=== PATIENT | female | born 1945 | race Caucasian/White ===

== ENCOUNTER → 2023-04-16 11:35 | Outpatient (REF) | payer MEDICARE, OTHER, SELFPAY | LOC: REG 11:35 | PROVIDERS: ATTENDING PHYSICIAN Internal Medicine Critical Care Medicine; FAMILY PHYSICIAN Internal Medicine Geriatric Medicine | DX: J47.9 Bronchiectasis, uncomplicated (principal); R05.3 Chronic cough | CPT/HCPCS: 87070; 87147; 87186; 87205 ==

== ENCOUNTER → 2023-11-15 10:02 | Outpatient (REF) | payer MEDICARE, OTHER, SELFPAY | LOC: RCS 10:02 | PROVIDERS: ATTENDING PHYSICIAN Internal Medicine Pulmonary Disease; FAMILY PHYSICIAN Internal Medicine Geriatric Medicine | DX: J84.9 Interstitial pulmonary disease, unspecified (principal); J84.10 Pulmonary fibrosis, unspecified | CPT/HCPCS: 93005 ==

== ENCOUNTER 2023-12-24 09:00 | Outpatient (RCR) | payer MEDICARE, OTHER, SELFPAY | END 2023-12-24 23:59 | disposition home or self-care (01) | LOC: PURB 09:00 | PROVIDERS: ATTENDING PHYSICIAN Internal Medicine Pulmonary Disease; FAMILY PHYSICIAN Internal Medicine Geriatric Medicine | DX: J84.9 Interstitial pulmonary disease, unspecified (principal); J96.11 Chronic respiratory failure with hypoxia | CPT/HCPCS: G0237 ==

== ENCOUNTER → 2024-01-23 14:19 | Outpatient (REF) | payer MEDICARE, OTHER, SELFPAY | LOC: REG 14:19 | PROVIDERS: ATTENDING PHYSICIAN Nurse Practitioner Adult Health | DX: J84.9 Interstitial pulmonary disease, unspecified (principal) | CPT/HCPCS: 87070; 87147; 87186; 87205 ==

== ENCOUNTER 2024-01-28 14:45 | Outpatient (RCR) | payer MEDICARE, OTHER, SELFPAY | END 2024-01-28 23:59 | disposition home or self-care (01) | LOC: PURB 14:45 | PROVIDERS: ATTENDING PHYSICIAN Internal Medicine Pulmonary Disease; FAMILY PHYSICIAN Internal Medicine Geriatric Medicine | DX: J84.9 Interstitial pulmonary disease, unspecified (principal); J96.11 Chronic respiratory failure with hypoxia | CPT/HCPCS: G0239 ==

== ENCOUNTER → 2024-01-29 10:15 | Outpatient (REF) | payer MEDICARE, OTHER, SELFPAY | LOC: REG 10:15 | PROVIDERS: ATTENDING PHYSICIAN Nurse Practitioner Adult Health; FAMILY PHYSICIAN Internal Medicine Geriatric Medicine | DX: R05.3 Chronic cough (principal) | CPT/HCPCS: 87070; 87147; 87186; 87205 ==

== ENCOUNTER 2024-03-05 14:45 | Outpatient (RCR) | payer MEDICARE, OTHER, SELFPAY | END 2024-03-20 11:35 | disposition home or self-care (01) | LOC: PURB 14:45 | PROVIDERS: ATTENDING PHYSICIAN Internal Medicine Pulmonary Disease; FAMILY PHYSICIAN Internal Medicine Geriatric Medicine | DX: J84.9 Interstitial pulmonary disease, unspecified (principal); J96.11 Chronic respiratory failure with hypoxia | CPT/HCPCS: G0239 ==

== ENCOUNTER 2024-03-10 18:18 | Inpatient (IN) | payer MEDICARE, OTHER, SELFPAY ==
[2024-03-10] VITALS (7 sets, daily range): BP systolic 118–163; BP diastolic 52–75; BMI 24.0; BMI 23.1
[2024-03-10] MEDS: TYLENOL 650 MG PO ×2 (14:22→21:55)
[2024-03-10 14:37] LABS: % Basophils 0.3 % (0-2); % Eosinophils 0.1 % (0-6); % Immature Granulocytes 0.4 % (0-0.5); % Lymphocytes 6.2 % (20.5-51.1); % Monocytes 15.3 % (1.7-9.3); % Neutrophils 77.7 % (42.2-75.2); Absolute Lymphocytes 0.6 10^3/uL (1.2-3.4); Absolute Monocytes 1.4 10^3/uL (0.1-0.6); Hematocrit 39.7 % (37.0-47.0); Hemoglobin 13.3 g/dL (12.0-16.0); Mean Corp Hgb Conc. 33.5 g/dL (33.0-37.0); Mean Corpuscular Volume 89.4 fL (81.0-99.0); Mean Platelet Volume 10.3 fL (7.4-10.4); Nucleated Red Blood Cells % 0 %; Platelet Count 272 10^3/uL (130-400); Red Blood Cell Count 4.44 10^6/uL (4.20-5.40); Red Cell Dist. Width 13.5 % (11.5-14.5)
[2024-03-10 14:48] LABS: ALT (SGPT) 25 U/L (0-35); AST (SGOT) 37 U/L (14-36); Albumin 4.7 g/dl (3.5-5.0); Alkaline Phosphatase 88 U/L (38-126); Blood Urea Nitrogen 18 mg/dl (7-17); Calcium 9.8 mg/dl (8.4-10.2); Carbon Dioxide 24 mmol/L (22-30); Chloride 97 mmol/L (98-107); Glucose 119 mg/dl (70-99); Potassium 3.9 mmol/L (3.5-5.1); Sodium 136 mmol/L (135-145); Total Bilirubin 0.4 mg/dl (0.2-1.3); Total Protein 7.5 g/dl (6.3-8.2); eGFR > 60.00
[2024-03-10 14:59] LABS: COVID-19 Antigen Negative (Negative)
[2024-03-10 16:13] LABS: Creatine Phosphokinase 98 U/L (30-135)
[2024-03-10] MEDS: NSS 1000 IV (16:19)
--- NOTE | 2024-03-10 16:45 | ED.GENMED ---
History of Present Illness
General
Chief Complaint: Weakness
Source: patient and family
Exam Limitations: none
Time Seen by Provider: 03/10/24 15:30
Nursing documentation reviewed up to this point in time: agreed with
History of Present Illness
History of Present Illness:
78-year-old female with history of hypertension, hyperlipidemia, interstitial lung disease on as needed home oxygen presents to the ER with family for evaluation of severe fatigue, cough, diarrhea; today was found down by daughter. Patient reports
that over the past 48 hours she has been having tremendous generalized weakness. She says she has watery brown stool nonbloody. She says she has had hacking cough and increased shortness of breath. Today when she went to get up out of bed she
says that she did not have the strength to even stand on her legs and she lowered herself down onto her bottom. She said she did not fall or injure herself. She denies any headache, neck pain, extremity pain. Was apparently sitting on the ground
for about 2 hours until daughter came to check on her and found her sitting. EMS was called by daughter who found her and she was brought to the ER. Review of medication list shows no blood thinners.
Review of Systems
Review of Systems
All Other Systems: ROS reviewed and negative except as documented in HPI and ROS
Constitutional: Reports fatigue; Denies fever or chills
EENT: Reports runny nose; Denies sore throat
Respiratory: Reports cough and trouble breathing
Cardiac: Denies chest pain or palpitations
ABD/GI: Reports diarrhea; Denies abdominal pain, nausea or vomiting
: Denies flank pain
Musculoskeletal: Denies neck pain or back pain
Neurological: Denies dizzy or headache
Phy Exam
Physical Exam
Physical Exam:
General: Awake, alert, oriented x3; no acute distress
Head: Normocephalic, atraumatic
Eyes: Conjunctiva normal, EOMI
Throat: Airway intact, dry mucous membranes
Neck: Trachea midline, supple without meningismus
Lungs: Patient is tachypneic, saturating 94% on 3 L nasal cannula; she has rales throughout all lung lopez most pronounced at the lung bases
Heart: Regular rate and rhythm, no murmurs, gallops, or rubs
Abd: Soft, non distended, nontender
Back: No signs of trauma the back or flank
Neuro: Generally weak but no focal deficit
Skin: Warm, dry
Extremities: Atraumatic, no edema in extremities, equal pulses in all extremities
Scores
Heart Failure Risk
Heart Failure Risk Score: Not Applicable
Heart Score for Chest Pain Patients
STEMI patient?: Not applicable
Withdrawal Assessment of Alcohol
Withdrawal Assessment Completed?: Not applicable
Sepsis
Sepsis Screening
Sepsis Assessment: Sepsis Ruled Out
Sepsis Screen
Sepsis Screen: Sepsis Ruled Out
Date: 03/10/24
Time: 16:53
Course
Orders/Labs/Results
Orders:
Orders
03/10/24 13:45
ECG [Electrocardiogram (*1)] Urgent
Reason for Study: Shortness of Breath
EKG- Treatment ONCE
03/10/24 14:09
Complete Blood Count/With Diff Urgent
Comprehensive Metabolic Panel Urgent
Creatine Phosphokinase Urgent
Comment: ADD ON
Influenza A+B Rapid Molecular Urgent
VAISHALI Source: Nasal Swab
Specimen Description:
03/10/24 14:10
COVID-19 Antigen Urgent
Source: Nasal Swab
03/10/24 14:22
Acetaminophen [Tylenol] 650 mg PO NOW STA
03/10/24 15:31
Add On- LAB Urgent
Tests Added?: CPK
CR Chest - 2 Views Urgent
Comment:
Reason For Exam: sob, flu+
03/10/24 15:32
CT Head W/o Iv Contrast Urgent
Comment:
Reason For Exam: found down, weak/confused
0.9% Sodium Chloride 1000 ml [Nss] 1,000 ml IV BOLUS
03/10/24 16:44
Ipratropium/Albuterol Sulfate [Duoneb] 3 ml INH R NOW ONE
MethylPREDNISolone PF [Solu-Medrol Pf] 125 mg IV NOW STA
Oseltamivir Phosphate [Tamiflu] 75 mg PO NOW STA
03/10/24 17:51
Admit/Transfer Patient As Directed
Co-Sign Provider:
Level of Care: Inpatient admission
Assign to:: Telemetry
Physician / Group: Hospitalist
Diagnosis: Influenza
Reason for Telemetry: Chest Pain syndromes
Date to Stop Telemetry: 03/12/24
Time to Stop Telemetry: 11:00
Reason for Hospitalization: Influenza
Expected length of stay greater than two midnights?: Yes
ELOS- Estimated Length of Stay in days: 5
I certify the patient meets the requirements for IP care: Yes
03/10/24 17:52
PRN Pain Medication Management As Directed
May give lesser potent ordered pain med per pt: Yes
preference::
Protocol:: Medication orders for pain may be administered in a
manner that supports deferring to patient preference
when the pt is:
- Requesting an ordered lesser potent pain medication.
Least to most potent pain medications are defined
as: acetaminophen < NSAID < tramadol < opioids
(morphine, oxycodone, hydromorphone).
- Requesting a lesser dose of the same medication IF
ORDERED.
- Requesting a less intrusive route of administration
if both routes are prescribed by the provider (PO <
IV).
03/10/24 17:54
Code Status As Directed
Resuscitation Status: Do not resuscitate
Reached after discussion with pt or family/Healthcare POA: Yes
Decision communicated with: patient and family at bedside
DNR Bracelet Application ONCE
03/10/24 19:50
Acetaminophen [Tylenol] 650 mg PO Q4HPRN PRN
Diphenhydramine [Benadryl] 25 mg PO HSPRN PRN
03/10/24 19:50
PULMONARY CONSULT Routine
Consulting Provider: Trav Trevizo
Was physician already notified: Yes
Reason for consult: influenza in setting of chronic pulmonary fibrosis
Respiratory Culture/Gram Stain Urgent
VAISHALI Source: Sputum
Specimen Description:
Activity As Directed
Activity Level: Out of Bed-Early Mobility
Intake/ Output As Directed
Frequency: Per unit guidelines
Vital Signs As Directed
Frequency: Per unit guidelines
Weight As Directed
Frequency: Once
Comment: on admission
Pt Eval And Treat Routine
Treatment: eval gait
Activity Level: With Assistance
DX Deep Vein Thrombosis Video Routine
03/10/24 20:00
Budesonide/Formoterol 160/4.5 [Symbicort 160/4.5 Mcg Inhaler] 2 puff INH R BID
Doxycycline [Vibramycin] 100 mg PO BID
Guaifenesin [Mucinex] 600 mg PO Q12
Heparin 5,000 units SC Q12
Mycophenolate [Cellcept] 250 mg PO BID
03/10/24 20:24
Troponin I Q6H
03/10/24 21:00
Cefuroxime Axetil [Ceftin] 500 mg PO Q12
03/10/24 22:00
Atorvastatin [Lipitor] 10 mg PO HS
03/11/24 01:50
Troponin I Q6H
03/11/24 Breakfast
Regular
At Your Request: Full Participation
Basic Metabolic Panel IN AM
Complete Blood Count/No Diff IN AM
03/11/24 07:50
Troponin I Q6H
03/11/24 08:00
Amlodipine [Norvasc] 5 mg PO DAILY
Aspirin Low Dose EC [Aspir Low (Enteric Coated)] 81 mg PO DAILY
Atovaquone/Zgmnldtmb-Hjq-Zpmi [Malarone 250/100 mg Tablet] 1 tablet PO DAILY
Calcium Carbonate/Vitamin D3 [Oscal 500 + D] 500 mg PO DAILY
Dexamethasone Sod Phosphate [Decadron] 8 mg IV Q6H
Loratadine [Claritin] 10 mg PO DAILY
Methenamine Hippurate [Hiprex] 1 gram PO DAILY
Montelukast Sodium [Singulair] 10 mg PO DAILY
Multivitamin [Theragran] 1 tablet PO DAILY
Oseltamivir Phosphate [Tamiflu] 30 mg PO BID
Pantoprazole [Protonix] 40 mg PO DAILY
Solifenacin Succinate [Vesicare] 5 mg PO DAILY
cranberry extract [Ellura] 200 mg PO DAILY
fluticasone propionate 2 spray NASAL DAILY
03/11/24 13:50
Troponin I Q6H
03/12/24 11:00
DC Protocol for Telemetry ONCE
Abnormal Lab Results
03/10/24
14:09
Absolute Neuts (auto) 7.0 H 10^3/uL
(1.4-6.5)
Absolute Lymphs (auto) 0.6 L 10^3/uL
(1.2-3.4)
Absolute Monos (auto) 1.4 H 10^3/uL
(0.1-0.6)
Neutrophils % 77.7 H %
(42.2-75.2)
Lymphocytes % 6.2 L %
(20.5-51.1)
Monocytes % 15.3 H %
(1.7-9.3)
Chloride 97 L mmol/L
(98-107)
BUN 18 H mg/dl
(7-17)
Glucose 119 H mg/dl
(70-99)
AST 37 H U/L
(14-36)
03/10/24 14:09
03/10/24 14:09
Vital Signs
Initial and Last Documented VS:
Initial Vital Signs
Temp Pulse Resp BP Pulse Ox
39.2 C H 99 24 158/75 93
03/10/24 13:39 03/10/24 13:39 03/10/24 13:39 03/10/24 13:39 03/10/24 13:39
Last Documented Vital Signs
Temp Pulse Resp BP Pulse Ox
36.6 C 73 16 118/54 97
03/10/24 23:16 03/10/24 23:16 03/10/24 23:16 03/10/24 23:16 03/10/24 23:16
MDM/Problems Addressed
Differential Diagnosis Includes:
Weakness: Infection including pneumonia, UTI, influenza/COVID/viral syndrome; anemia, electrolyte derangement/dehydration
MDM/Problems Addressed:
78-year-old female presents for evaluation of generalized weakness in the setting of recent cough, diarrhea; she had a minor fall today as well but denies serious injury. She arrives to us mildly hypertensive, heart rate in the 90s, respiratory
rate mid 20s, febrile, pulse ox low to mid 90s on 3 L nasal cannula. Physical exam as above. She had labs sent in triage including a CBC and a CMP�CMP marginal BUN elevation but no other clinically significant abnormalities. Added CPK as she was
on the ground for about 2 hours�this was normal. She was tested for COVID and flu and she was positive for influenza A. She was sent for CT head and abundance of caution given fall and this was negative. Chest x-ray showed ILD but no clear
pneumonia. Clinical suspicion is for influenza A and interstitial lung disease causing her dyspnea and coughing as well as her diarrhea. Will treat with steroids, nebs, Tamiflu. Provide IV fluids for acute dehydration noted on exam. Will admit
for continued management, PT evaluation. Discussed case with hospitalist.
*Radiology
Radiology exam reviewed: preliminary read by ED provider and radiology read reviewed
*Pulse Oximetry
Patient hypoxic: yes
*EKG
Interpreted by ED Provider?: Yes
Heart Rate: 98
Rate: normal
Rhythm: sinus
Goff: normal axis
Interval: normal interval
QRS Pattern: left vent hypertrophy
Ischemia: no ischemia
*Critical Care Note
Total Time (30-74mins, 75-104mins- exclusive of procedures): Not Applicable
Data Reviewed
Source: patient, records and family
Patient Management
Social determinants of health affecting care: Living situation (Lives alone)
Discussion with other providers: Hospitalist (Discussed with hospitalist)
Escalation/DeEscalation of care consider admission/obs:
Admission indicated
ED Attending Note
-
Portions of this chart may have been created with voice recognition software.� Occasional wrong word or��sound alike� substitutions may have occurred due to the inherent limitations of voice recognition software.
Discharge Plan
Departure
Patient Disposition: Admit
Date of Disposition: 03/10/24
Time of Disposition: 16:53
Admit to doctor: Thomas
Presentation/result/management discussed w/ accepting MD/DO: Hospitalist
Discharge Problem:
Acute dehydration, Influenza A, ILD (interstitial lung disease)
Interventions
Interventions:
*Risk Screen - Suicide Last Done: 03/10/24 15:36
*General Assessment Last Done: 03/10/24 15:36
*Neglect/Abuse Screening Last Done: 03/10/24 15:36
ED- Fall Risk Assessment Last Done: 03/10/24 15:36
*ED COVID-19 Vaccine History Last Done: 03/10/24 15:36
*Nursing Disposition Last Done: 03/10/24 19:36
ED- Cardiac Assessment Last Done: 03/10/24 15:39
ED- Neurological Assessment Last Done: 03/10/24 15:39
ED- Pulmonary Assessment Last Done: 03/10/24 15:43
Discharge Date and Time
Discharge Date/Time: 03/10/24 19:39
[2024-03-10] MEDS: TAMIFLU 75 MG PO (16:55)
[2024-03-10] MEDS: DUONEB 3 ML INH (16:55)
[2024-03-10] MEDS: SOLU-MEDROL PF 125 MG IV (16:56)
--- NOTE | 2024-03-10 17:23 | HPS.HSE ---
Family Physician
-
Family Physician: Marquez Nettles
Chief Complaint
-
Respiratory distress
History of Present Illness
78-year-old woman with a history of:
hypertension,
hyperlipidemia,
interstitial lung disease on as needed home oxygen
presents with severe fatigue, cough, diarrhea; over the past 48 hours she has been having severe generalized weakness. 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 She has had hacking cough and increased shortness of breath. Today she did
not have the strength to stand on her legs and she lowered herself down onto her bottom, by her bed. She did not fall or injure herself. She denies any headache, neck pain, extremity pain. She Was sitting on the ground for about 2 hours until
daughter found her sitting. EMS was called by daughter who found her and she was brought to the ER. No blood thinners. During my exam she was coughing violently, but was able to speak in full sentences. CXR shows:
Extremely low lung volumes are noted. Prominent bilateral interstitial markings are again seen at least in part suggesting chronic interstitial fibrosis.
Cannot exclude mild superimposed acute interstitial process.
There is no focal parenchymal consolidation.
The cardiomediastinal silhouettes are within the limits of normal.
There is no pneumothorax, pleural effusion or mediastinal shift.
Medical History
Past Medical History
Past Medical History: Reports Other
Additional Past Medical History:
Pulmonary fibrosis
History of kidney stones
Personal history of colonic polyps
Essential (primary) hypertension
Chronic UTI
Mixed hyperlipidemia
Bronchiectasis, uncomplicated
Chronic cough
Gastroesophageal reflux disease,
Interstitial lung disease
sinus surgery x2 (2011)
left wrist ligament rebuilt
forehead basal cell ca-mohs (2012)
sinusitis
squamous cell CA nose-mohs
Allergic rhinitis
Hx kidney stones
DandC
catracts both eyes
squimous cancer remoed from nose
skin cancer on R leg removed 06/2019
skin cancer removed from chin 2019
Surgical History
Cysto 08/2022
Past Surgical History: Reports Other
Additional Past Surgical History:
See above
Social History
Tobacco: Non-smoker
Alcohol: None
Drug: None
Living: Alone
Family History
Family History: Not pertinent
Allergies / Home Medications
Allergies reflects when Allergies were last updated in [facility].
Home Medications with original date entered in [facility]
Allergy/Medication List:
Allergies
Allergy/AdvReac Type Severity Reaction Status Date / Time
clindamycin [Clindamycin] Allergy Rash Verified 03/10/24 13:41
latex Allergy Rash Verified 03/10/24 13:41
oxycodone HCl [From Percocet] Allergy headache,vo Verified 03/10/24 13:41
miting
sulfamethoxazole Allergy Rash Verified 03/10/24 13:41
[From Bactrim]
trimethoprim [From Bactrim] Allergy Rash Verified 03/10/24 13:41
bandaids Allergy Rash Uncoded 03/10/24 13:41
Dust,mold Allergy headache,co Uncoded 03/10/24 13:41
ngestion
surgical tape Allergy Rash Uncoded 03/10/24 13:41
Home Medications
amlodipine 5 mg tablet 5 mg PO DAILY 03/10/24
amoxicillin 875 mg-potassium clavulanate 125 mg tablet 1 tab PO BID 03/10/24
aspirin 81 mg capsule 81 mg PO DAILY 03/10/24
atovaquone 250 mg-proguanil 100 mg tablet (Malarone) 1 tab PO DAILY 03/10/24
budesonide-formoterol HFA 160 mcg-4.5 mcg/actuation aerosol inhaler (Breyna) 2 puff inhalation BID 03/10/24
calcium carb-ergocalciferol (vit D2) 600 mg calcium-200 unit tablet 1 tab PO DAILY 03/10/24
cefaclor 500 mg tablet,extended release,12 hr 500 mg PO Q12H 03/10/24
cranberry extract 200 mg capsule (Ellura) 200 mg PO DAILY 03/10/24
diphenhydramine HCl 25 mg tablet (Benadryl Allergy) 25 mg PO HS PRN sleep 03/10/24
fexofenadine 180 mg tablet 180 mg PO DAILY 03/10/24
fluticasone propionate 50 mcg/actuation nasal spray,suspension 2 spray intranasal DAILY 03/10/24
methenamine hippurate 1 gram tablet 1 g PO DAILY 03/10/24
montelukast 10 mg tablet 10 mg PO DAILY 03/10/24
multivitamin 1 tab PO DAILY 03/10/24
mycophenolate mofetil 250 mg capsule (CellCept) 250 mg PO BID 03/10/24
omeprazole 40 mg capsule,delayed release 40 mg PO DAILY 03/10/24
pantoprazole 40 mg tablet,delayed release 40 mg PO DAILY 03/10/24
simvastatin 20 mg tablet 20 mg PO HS 03/10/24
solifenacin 5 mg tablet 5 mg PO DAILY 03/10/24
Review of Systems
-
History Source: Patient
A 12 point ROS was completed and negative except as noted: Yes
Physical Exam
Vital Signs
Vital Signs
Temp Pulse Resp BP Pulse Ox
99.5 F 86 15 132/54 94
03/10/24 16:20 03/10/24 17:00 03/10/24 16:19 03/10/24 17:00 03/10/24 17:00
Physical Exam
General: Well Developed, Well Nourished and Respiratory Distress
HEENT: Moist mucous membranes, Atraumatic, Nose Appears Normal, Ears Appear Normal and Oxygen
Respiratory: Wheezes, Crackles and Decreased Breath Sounds
Cardiac: S1/S2 and Tachycardia
GI: Soft, Non Tender and Non Distended
Musculoskeletal: No Clubbing, No Cyanosis and No Edema
Skin: Warm and Dry
Neuro: Awake, Alert, Oriented and AO x 3
Psych: Anxious
Laboratory Results
-
03/10/24 14:09
03/10/24 14:09
Laboratory Results
Total Bilirubin 0.4 mg/dl (0.2-1.3) 03/10/24 14:09
AST 37 U/L (14-36) H 03/10/24 14:09
ALT 25 U/L (0-35) 03/10/24 14:09
Alkaline Phosphatase 88 U/L (38-126) 03/10/24 14:09
Data Reviewed
-
Lab Data: Labs Reviewed by me
Impression/Plan
-
IMPRESSION:
78 woman with chronic lung disease comes in with influenza
PLAN:
1. Influenza A, 1 day of symptoms. in setting of chronic lung fibrosis
Steroids
Tamiflu
Pulmonary consult
cough control
2. h/o sitting on floor for several hours - CK wnl
NO action needed
No evidencce of rhabdo
3. BUN/creatinine > 20, likely from poor po intake
Encourage po fluids
Check renal function daily
Code: DNR
VCD for DVTp
[2024-03-10] MEDS: CELLCEPT 250 MG PO (20:54)
[2024-03-10 20:56] LABS: Troponin I 0.027 ng/ml
[2024-03-10] MEDS: CEFTIN 500 MG PO (20:56)
[2024-03-10] MEDS: MUCINEX 600 MG PO (20:56)
[2024-03-10] MEDS: HEPARIN 5000 UNITS SC (20:57)
[2024-03-10] MEDS: ZOFRAN 4 MG IV (20:57)
[2024-03-10] MEDS: LIPITOR 10 MG PO (21:30)
[2024-03-10] MEDS: SYMBICORT 160/4.5 MCG INHALER 2 PUFF INH (21:31)
[2024-03-10] MEDS: VIBRAMYCIN PO (21:36)
[2024-03-10 23:15] LABS: Glucose - Point of Care 165 mg/dl (70-99)
[2024-03-11] VITALS (7 sets, daily range): BP systolic 109–127; BP diastolic 50–73; O2SAT 100; BMI 23.1
[2024-03-11 00:50] LABS: Venous Blood Gas B.E. -2.2 mmol/L (-4 to +4); Venous Blood Gas HCO3 24.2 mmol/L (22-27); Venous Blood Gas O2 Sat % 99.1 %; Venous Blood Gas pCO2 47 mmHg (35-48); Venous Blood Gas pH 7.32 (7.32-7.43); Venous Blood Gas pO2 114 mmHg (30-50)
[2024-03-11 00:51] LABS: Venous Blood Gas O2 Therapy 3L NC
--- NOTE | 2024-03-11 02:09 | DOWNTIME ---
There was a [employer] Client [employer] Downtime on 03/11/2024 from 0100 to 03/11/2023 at 0205 . Downtime documentation of patient's care, including medication administrations, has been reconciled in the electronic record per guidelines. Refer to the
patient's paper chart under the miscellaneous tab to see printed paper medication records and downtime forms.
[2024-03-11 02:49] LABS: Troponin I 0.021 ng/ml
--- NOTE | 2024-03-11 03:17 | W.PN.UPDATE ---
Update Note
Progress Note Update
RN notified GAG WRITER. Patient has been ox3, conversant and now found to be sleeping with minimal response to questions. Patient seen and evaluated. noted to be sleeping, arousable, opens eyes, whispered she is at [facility] and went back to
sleep. 97.8 BP 118/54 HR 73 and 97% on 3L. Blood sugar 165, did not receive any sedatives. no medications found in patients bag that she may have taken.
Stab VBG done, results noted, advise wean oxygen down as allowed.
RN reported patient is awake alert and oriented at present. occasional productive cough, will order medications.
[2024-03-11] MEDS: ROBITUSSIN DM 5 ML PO (04:53)
--- NOTE | 2024-03-11 07:52 | PTCARENOTE ---
late entry: 03/10 @ 2300 pt was very lethargic and unable to keep eyes open during conversation. able to be aroused with touch/pain but would quickly fall back asleep right after. VS were stable as documented, BS obtained- 165. Pt appeared mildly
confused when responding...AAOx2 disoriented to time. Pt was AAOx3 at start of shift. THERAPIST OCCUPATIONAL was notified and came to bedside to assess pt. VBG ordered and obtained.
Approximately @ 0300 was AAOx3 back at baseline. Pt still complains of feeling mildly confused at times and feels to have 'brain fog.' VS Stable at this time. THERAPIST OCCUPATIONAL notified. No new orders.
[2024-03-11] MEDS: SYMBICORT 160/4.5 MCG INHALER 2 PUFF INH ×2 (08:10→19:52)
[2024-03-11 08:19] LABS: Hematocrit 37.2 % (37.0-47.0); Hemoglobin 12.7 g/dL (12.0-16.0); Mean Corp Hgb Conc. 34.1 g/dL (33.0-37.0); Mean Corpuscular Hgb 30.5 pg (27.0-31.0); Mean Corpuscular Volume 89.4 fL (81.0-99.0); Mean Platelet Volume 10.2 fL (7.4-10.4); Platelet Count 242 10^3/uL (130-400); Red Blood Cell Count 4.16 10^6/uL (4.20-5.40); Red Cell Dist. Width 13.6 % (11.5-14.5); White Blood Cell Count 8.3 10^3/uL (4.8-10.8)
[2024-03-11 08:20] LABS: Troponin I 0.017 ng/ml
--- NOTE | 2024-03-11 08:44 | CON.PUL ---
Consultation
Consultation Request
Date/Time Consultation Requested: 03/11/24
Date/Time Consultation Performed: 03/11/24
Performing Provider: Rodney
Reason for Consultation: Flu, COPD
Medical History
-
History of Present Illness:
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 She had worsening weakness,
lowered herself down onto her bottom, by her bed. Found by daughter, denies fall or injury. CXR showing chronic changes, no acute process.
In ER, she was noted to be Flu A positive. She is admitted for treatment/tamiflu.
Has history of IPF following with Dr Estrdaa in [place].
Past Medical History
Past Medical History: Other (see list below)
Social History
Tobacco: Non-smoker
Alcohol: None
Drug: None
Family History
Family History: Reviewed & Not Pertinent
Allergies / Home Medications
Allergies
Allergy/AdvReac Type Severity Reaction Status Date / Time
adhesive Allergy BANDAIDS-RA Verified 03/10/24 19:56
SH
clindamycin [Clindamycin] Allergy Rash Verified 03/10/24 13:41
house dust Allergy headache,co Verified 03/10/24 19:56
ngestion
latex Allergy Rash Verified 03/10/24 13:41
mold Allergy headache,co Verified 03/10/24 19:56
ngestion
oxycodone HCl [From Percocet] Allergy headache,vo Verified 03/10/24 13:41
miting
sulfamethoxazole Allergy Rash Verified 03/10/24 13:41
[From Bactrim]
trimethoprim [From Bactrim] Allergy Rash Verified 03/10/24 13:41
surgical tape Allergy Rash Uncoded 03/10/24 13:41
Home Medications
�Medication �Instructions �Recorded �Confirmed �Last Taken �Type
amlodipine 5 mg tablet 5 mg PO DAILY Blood Pressure 03/10/24 03/10/24 Unknown History
amoxicillin 875 mg-potassium 1 tab PO BID Infection 03/10/24 03/10/24 Unknown History
clavulanate 125 mg tablet
aspirin 81 mg capsule 81 mg PO DAILY Blood Clot 03/10/24 03/10/24 Unknown History
Prevention/Tx
atovaquone 250 mg-proguanil 100 mg 1 tab PO DAILY Infection 03/10/24 03/10/24 Unknown History
tablet (Malarone)
budesonide-formoterol HFA 160 2 puff inhalation BID 03/10/24 03/10/24 Unknown History
mcg-4.5 mcg/actuation aerosol Lung/Breathing Issues
inhaler (Breyna)
calcium carb-ergocalciferol (vit 1 tab PO DAILY Supplement 03/10/24 03/10/24 Unknown History
D2) 600 mg calcium-200 unit tablet
cefaclor 500 mg tablet,extended 500 mg PO Q12H Infection 03/10/24 03/10/24 Unknown History
release,12 hr
cranberry extract 200 mg capsule 200 mg PO DAILY Supplement 03/10/24 03/10/24 Unknown History
(Ellura)
diphenhydramine HCl 25 mg tablet 25 mg PO HS PRN sleep 03/10/24 03/10/24 Unknown History
(Benadryl Allergy)
fexofenadine 180 mg tablet 180 mg PO DAILY Allergies 03/10/24 03/10/24 Unknown History
fluticasone propionate 50 2 spray intranasal DAILY Congestion 03/10/24 03/10/24 Unknown History
mcg/actuation nasal
spray,suspension
methenamine hippurate 1 gram tablet 1 g PO DAILY Infection 03/10/24 03/10/24 Unknown History
montelukast 10 mg tablet 10 mg PO DAILY ASTHMA 03/10/24 03/10/24 Unknown History
multivitamin 1 tab PO DAILY Supplement 03/10/24 03/10/24 Unknown History
mycophenolate mofetil 250 mg 250 mg PO BID Transplant 03/10/24 03/10/24 Unknown History
capsule (CellCept)
omeprazole 40 mg capsule,delayed 40 mg PO DAILY GERD 03/10/24 03/10/24 Unknown History
release
pantoprazole 40 mg tablet,delayed 40 mg PO DAILY GERD 03/10/24 03/10/24 Unknown History
release
simvastatin 20 mg tablet 20 mg PO HS High Cholesterol 03/10/24 03/10/24 Unknown History
solifenacin 5 mg tablet 5 mg PO DAILY OAB 03/10/24 03/10/24 Unknown History
Review of Systems
-
History Source: Patient
All other systems: Negative unless noted
Vitals / Labs / Diagnostic Testing
Vital Signs
Temp Pulse Resp BP Pulse Ox
98.4 F 88 20 127/62 91
03/11/24 07:30 03/11/24 08:16 03/11/24 08:16 03/11/24 07:30 03/11/24 08:16
Lab Data
03/11/24 07:48
Microbiology
03/10/24 14:09 Nasal Swab Influenza Types A & B (JUSTIN) - Final
Influenza A Positive, NAAT
Diagnostic Testing:
Physical Exam
-
HEENT: Normocephalic, Anicteric and Moist Mucous Membranes
Cardiovascular: S1/S2 and Regular Rhythm
Respiratory: Rales and Non-Labored Respirations
GI: Soft, Non Distended and Non Tender
Neurology: Awake, Alert, Oriented and No Motor Deficits
Skin: Warm, Dry and Good Color
General: Comfortable and Other (NAD)
Assessment
-
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 She had worsening weakness,
lowered herself down onto her bottom, by her bed. Found by daughter, denies fall or injury. CXR showing chronic changes, no acute process.
In ER, she was noted to be Flu A positive. T max at 102.6F. She is admitted for treatment/tamiflu.
Acute on chronic respiratory failure on O2
Acute influenza A infection
AECOPD
Acute on chronic SOB
Generalized weakness
Fever
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
History of IPF following with Dr Estrada in [place], with RLD severe (TLC 43%)
COPD-moderate obstruction
HTN
HLD
History of kidney stones
Personal history of colonic polyps
Essential hypertension
Chronic UTI
Bronchiectasis, uncomplicated
Chronic cough
Gastroesophageal reflux disease
Sinusitis/Sinus surgery x2 (2011)
Left wrist ligament rebuilt
Forehead basal cell ca-mohs (2012)
Squamous cell CA nose-mohs
Allergic rhinitis
D/C
Cataracts both eyes
Skin cancer on R leg/chin 2019
Cysto 08/2022
Plan
Baseline use of O2 at home PRN, she is placed on 2L supplemental
May need to use this continuously until improved, reviewed with her
There is known prior history of lung disease including COPD/IPF, chronic cough
She follows with Pulmonary in [place]
Suspect patient has AECOPD w/ flu illness
She is on IV steroids, will decrease starting dose
She has taken prednisone in past for exacerbations
ABG results are normal
Flu A + now on tamiflu
Fevers noted, continue to trend
CXR/CT obtained indicating R perihilar infiltrate
Follow clinically
Other imaging reviewed
Can follow repeat imaging as OP in 4-6 weeks
Can check PCT to evaluate need for abx
Had prior blood cultures that were positive, being treated with oral course of abx
No records on treatment for this
ECHO results in past reviewed, stable function
Will need outpatient pulmonary evaluation in our office including PFTs and 6MWT
Reviewed with patient
Can follow up with her doctor in [place], has appt next month
If doing well in next 24 hours, could assess for discharge
We will follow
Diagnostic Data
CXR 03/10/24- Extremely low lung volumes. Findings likely representing predominantly chronic interstitial fibrosis. Cannot exclude mild superimposed acute interstitial process such as interstitial edema or interstitial pneumonitis.
CT CHEST 02/20/23- Moderate interstitial thickening and chronic interstitial lung disease with fibrosis. 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 Classic honeycombing is not present, and this is a distinct imaging feature
of UIP therefore this suggests 'probable UIP pattern'. Reticular abnormalities with areas of vague groundglass mosaic pattern, bronchiectasis and a subpleural basilar predominance. This may represent IPF (Idiopathic pulmonary fibrosis). No focal
airspace process or bronchopneumonia. No pleural effusion.
ECHO 01/25/23- Normal left ventricular size, wall thickness and systolic function. LV ejection fraction is 65-70%. No significant valvular disease. No prior study available for comparison.
PFT 12/24/23- FEV1 1.06L 56%, ratio 0.79. TLC 43%, DLCO 48% (moderate obstruction, severe restriction, moderate diffusion impairment)
Reports and relevant images were personally reviewed.
-----
Total time spent on this consultation _75__ minutes which includes review of history, physical exam, medications, llaboratory data, personal review of imaging, extensive review of outpatient records, and discussions with care team.
[2024-03-11 08:45] LABS: Blood Urea Nitrogen 23 mg/dl (7-17); Calcium 8.9 mg/dl (8.4-10.2); Carbon Dioxide 23 mmol/L (22-30); Chloride 101 mmol/L (98-107); Estimated Creatinine Clearance 63 ml/min; Glucose 129 mg/dl (70-99); Potassium 3.7 mmol/L (3.5-5.1); Sodium 138 mmol/L (135-145); eGFR > 60.00
[2024-03-11] MEDS: ASPIR LOW (ENTERIC COATED) 81 MG PO (08:53)
[2024-03-11] MEDS: CLARITIN 10 MG PO (08:54)
[2024-03-11] MEDS: CEFTIN 500 MG PO ×2 (08:54→21:14)
[2024-03-11] MEDS: VIBRAMYCIN 100 MG PO ×2 (08:54→21:16)
[2024-03-11] MEDS: SINGULAIR 10 MG PO (08:54)
[2024-03-11] MEDS: THERAGRAN 1 TABLET PO (08:54)
[2024-03-11] MEDS: OSCAL 500 + D 500 MG PO (08:54)
[2024-03-11] MEDS: MUCINEX 600 MG PO ×2 (08:54→21:14)
[2024-03-11] MEDS: TYLENOL 650 MG PO (08:55)
[2024-03-11] MEDS: NORVASC 5 MG PO (08:55)
[2024-03-11] MEDS: HIPREX 1 GRAM PO (08:55)
[2024-03-11] MEDS: DECADRON 8 MG IV ×2 (08:56→14:23)
[2024-03-11] MEDS: PROTONIX 40 MG PO (08:56)
[2024-03-11] MEDS: CELLCEPT 250 MG PO ×2 (08:56→21:14)
[2024-03-11] MEDS: VESICARE 5 MG PO (08:56)
[2024-03-11] MEDS: TAMIFLU 30 MG PO ×2 (08:56→21:13)
[2024-03-11] MEDS: HEPARIN 5000 UNITS SC ×2 (08:57→21:15)
[2024-03-11 14:08] LABS: Troponin I 0.014 ng/ml
--- NOTE | 2024-03-11 15:20 | W.PN.HOSP.TC ---
Today's Communication/Plan
-
finish Tamiflu
wean steroids
check procalcitonin
Assessment / Plan
Assessment / Plan
pt is a 78 year old female
acute exacerbation of COPD from influenza (with weakness)--agree with Tamiflu--on home O2 dose--wean steroids as able--apprec pulm input--would stop ABX for now--cont Singulair and MDIs--check procalcitonin per pulm
acute on chronic hypoxemic resp failure on 2L home O2 at baseline--pt now back to home O2 dose--pt NO longer takes malarone--cont cellcept
essential HTN -- cont amlodipine
GERD -- cont PPI
HLD -- cont simvastatin
DVT proph
Code: DNR
Anticipated Discharge: 24 - 48 hours
Subjective/Interval History
-
Date of Service: March 11, 2024
pt feeling better--not as weak
Objective Data
-
Labs:
Laboratory Results
03/11/24
07:48
WBC 8.3
Hgb 12.7
Hct 37.2
Plt Count 242
Sodium 138
Potassium 3.7
Chloride 101
Carbon Dioxide 23
BUN 23 H
Creatinine 0.6
Glucose 129 H
Calcium 8.9
Vital Signs:
max temp for 24 hours
03/10/24
13:39
Temp 102.6 F H
Vital Signs
Temp Pulse Resp BP Pulse Ox
97.9 F 68 16 126/52 95
03/11/24 11:29 03/11/24 11:29 03/11/24 11:29 03/11/24 11:29 03/11/24 11:29
I&O
03/10/24 03/11/24 03/12/24
06:59 06:59 06:59
Intake Total 480 / 480
Balance 480 / 480
Review of Systems
-
All other systems: Reviewed and negative
Physical Exam
-
General: Appears Chronically Ill
HEENT: Normocephalic, Atraumatic and Oxygen
Respiratory: Crackles (coarse velcro like crackles)
Cardiac: Regular Rhythm and S1/S2; Negative Murmur
GI: Soft, Nontender, Nondistended and Normal Bowel Sounds
Musculoskeletal: No Clubbing, No Cyanosis and No Edema
Neuro: Awake and Alert
Psych: Calm
--- NOTE | 2024-03-11 15:55 | CM ---
Patient seen at bedside with physician. Patient stated that she lives alone and that her PCP is Dr. Nettles. Patient home is a 2 story home and she uses the [facility] in [place] on [address]. Patient has home O2 2 liters and she normally is very
independent. Patient daughter at bedside. CM reviewed options with them, home vs snf pending PT/OT assessment. Patient plan is for home but is considering SNF if recommended. CM will continue to follow for discharge planning needs.
Plan; home with VN vs SNF
[2024-03-11] MEDS: LIPITOR 10 MG PO (21:13)
[2024-03-11] MEDS: DECADRON 4 MG IV (21:14)
[2024-03-12] MEDS: DECADRON 4 MG IV ×3 (02:49→13:47)
[2024-03-12 03:00] VITALS: BP 138/73
[2024-03-12] MEDS: TUMS CHEWABLE TABLET 200 MG PO (04:05)
[2024-03-12] MEDS: PROTONIX 40 MG PO (05:45)
[2024-03-12 06:41] LABS: Procalcitonin < 0.05 ng/ml (0.0-0.25)
[2024-03-12 06:42] LABS: Blood Urea Nitrogen 29 mg/dl (7-17); Carbon Dioxide 23 mmol/L (22-30); Chloride 102 mmol/L (98-107); Estimated Creatinine Clearance 63 ml/min; Glucose 124 mg/dl (70-99); Potassium 4.1 mmol/L (3.5-5.1); Sodium 137 mmol/L (135-145); eGFR > 60.00
[2024-03-12 07:11] LABS: Hemoglobin 12.7 g/dL (12.0-16.0); Mean Corp Hgb Conc. 33.4 g/dL (33.0-37.0); Mean Corpuscular Hgb 30.1 pg (27.0-31.0); Mean Platelet Volume 10.4 fL (7.4-10.4); Platelet Count 266 10^3/uL (130-400); Red Blood Cell Count 4.22 10^6/uL (4.20-5.40); Red Cell Dist. Width 13.4 % (11.5-14.5); White Blood Cell Count 14.3 10^3/uL (4.8-10.8)
[2024-03-12] MEDS: SYMBICORT 160/4.5 MCG INHALER 2 PUFF INH ×2 (07:24→20:36)
[2024-03-12 07:30] VITALS: BP 133/58
[2024-03-12] MEDS: TAMIFLU 30 MG PO (08:28)
[2024-03-12] MEDS: NORVASC 5 MG PO (08:28)
[2024-03-12] MEDS: CEFTIN 500 MG PO (08:28)
[2024-03-12] MEDS: OSCAL 500 + D 500 MG PO (08:28)
[2024-03-12] MEDS: HIPREX 1 GRAM PO (08:29)
[2024-03-12] MEDS: SINGULAIR 10 MG PO (08:29)
[2024-03-12] MEDS: ASPIR LOW (ENTERIC COATED) 81 MG PO (08:29)
[2024-03-12] MEDS: THERAGRAN 1 TABLET PO (08:29)
[2024-03-12] MEDS: MUCINEX 600 MG PO (08:29)
[2024-03-12] MEDS: VESICARE 5 MG PO (08:30)
[2024-03-12] MEDS: CLARITIN 10 MG PO (08:30)
[2024-03-12] MEDS: VIBRAMYCIN 100 MG PO (08:30)
[2024-03-12] MEDS: CELLCEPT 250 MG PO ×2 (08:30→20:12)
[2024-03-12] MEDS: HEPARIN 5000 UNITS SC ×2 (08:32→20:11)
--- NOTE | 2024-03-12 08:33 | PN.CDI ---
CDI
- -
CDI:
Physician Documentation Request
Admit Date: 03/10/24 18:18
Dear Doctor Ibeth,
Patient admitted with influenza A.
Selected Entries
03/10/24
13:39
Temp 102.6 F H
03/10/24
13:39 03/10/24
17:45 03/10/24
18:10
Pulse 99 91 101
03/10/24
15:38 03/10/24
18:22 03/10/24
19:30
Resp Rate 26 24 33
Please clarify which of the following most accurately describes the status of the patient's infection:
Viral Sepsis
- Systemic manifestations of infection, with 2 or more SIRS criteria which include:
- Fever >100.4 degrees F or hypothermia < 96.8 degrees F
- Leukocytosis - WBC > 12,000 or leukopenia - WBC < 4,000 or > 10% bands
- Tachycardia > 90 beats per minute
- Tachypnea - RR > 20 breaths per minute or PaCO2 , 32mmHg
Source: Merck Manual 2012
- Indicate the known or suspected underlying infection, such as UTI, pneumonia or cellulitis
Severe Sepsis
- Sepsis with associated acute organ dysfunction, such as renal or respiratory failure
- Documentation should indicate the association between the sepsis and the organ dysfunction
Localized Infection Only, Without Systemic Illness
- indicate the site/source, such as UTI, pneumonia etc.
Other
Use of terms such as suspected, likely, concern for, or probable (associated with a specific diagnosis that is being evaluated, monitored, or treated as if it exists) are acceptable and can be coded in the inpatient setting, when documented at the
time of discharge.
Thank you,
Fang Bishop RN, BSN
CDI Specialist
Available via [employer] text
Please use your independent medical judgment in providing your response.
--- NOTE | 2024-03-12 09:06 | W.PN.PUL3 ---
Today's Communication / Plan
-
Doing well, no new complaints
Will transition to PO prednisone to complete taper
Complete tamiflu course, no need for abx from our standpoint
Home O2 eval
Can f/u with her Pulm in [place] as OP
PT eval
Ok for discharge from our perspective, but she states she does not wish to go home
Assessment
-
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 She had worsening weakness,
lowered herself down onto her bottom, by her bed. Found by daughter, denies fall or injury. CXR showing chronic changes, no acute process.
In ER, she was noted to be Flu A positive. T max at 102.6F. She is admitted for treatment/tamiflu.
Acute on chronic respiratory failure on O2
Acute influenza A infection
AECOPD
Acute on chronic SOB
Generalized weakness
Fever
Conditions present [employer]
History of IPF following with Dr Estrada in [place], with RLD severe (TLC 43%)
COPD-moderate obstruction
HTN
HLD
History of kidney stones
Personal history of colonic polyps
Essential hypertension
Chronic UTI
Bronchiectasis, uncomplicated
Chronic cough
Gastroesophageal reflux disease
Sinusitis/Sinus surgery x2 (2011)
Left wrist ligament rebuilt
Forehead basal cell ca-mohs (2012)
Squamous cell CA nose-mohs
Allergic rhinitis
D/C
Cataracts both eyes
Skin cancer on R leg/chin 2019
Cysto 08/2022
Plan
Baseline use of O2 at home PRN, she is placed on 2L supplemental
May need to use this continuously until improved, reviewed with her
There is known prior history of lung disease including COPD/IPF, chronic cough
She follows with Pulmonary in [place]
Suspect patient has AECOPD w/ flu illness
She is on IV steroids, will decrease starting dose--transition to PO course in AM
She has taken prednisone in past for exacerbations
ABG results are normal
Flu A + now on tamiflu
Fevers noted, continue to trend
CXR/CT obtained indicating R perihilar infiltrate
Follow clinically
Other imaging reviewed
Can follow repeat imaging as OP in 4-6 weeks
PCT neg--can stop abx
Had prior sputum cultures that were positive, being treated with oral course of abx but no records to confirm
Can follow up OP pulm for this
ECHO results in past reviewed, stable function
Will need outpatient pulmonary evaluation in our office including PFTs and 6MWT
Reviewed with patient
Can follow up with her doctor in [place], has appt next month
If doing well in next 24 hours, could assess for discharge
Diagnostic Data
CXR 03/10/24- Extremely low lung volumes. Findings likely representing predominantly chronic interstitial fibrosis. Cannot exclude mild superimposed acute interstitial process such as interstitial edema or interstitial pneumonitis.
CT CHEST 02/20/23- Moderate interstitial thickening and chronic interstitial lung disease with fibrosis. 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 Classic honeycombing is not present, and this is a distinct imaging feature
of UIP therefore this suggests 'probable UIP pattern'. Reticular abnormalities with areas of vague groundglass mosaic pattern, bronchiectasis and a subpleural basilar predominance. This may represent IPF (Idiopathic pulmonary fibrosis). No focal
airspace process or bronchopneumonia. No pleural effusion.
ECHO 01/25/23- Normal left ventricular size, wall thickness and systolic function. LV ejection fraction is 65-70%. No significant valvular disease. No prior study available for comparison.
PFT 12/24/23- FEV1 1.06L 56%, ratio 0.79. TLC 43%, DLCO 48% (moderate obstruction, severe restriction, moderate diffusion impairment)
Reports and relevant images were personally reviewed.
-----
Total time spent on this encounter _55__ minutes which includes review of history, physical exam, medications, llaboratory data, personal review of imaging, extensive review of outpatient records, and discussions with care team.
Subjective Data
-
Date of Service:
Date of Service: March 12, 2024
Chief Complaint: Pulmonary Follow Up
Subjective:
Doing well today, still SOB, too anxious to go home
No new complaints
Objective Data
Data Reviewed
Vital Signs / I&O / Oxygen:
Vital Signs
Temp Pulse Resp BP Pulse Ox
98.8 F 68 16 133/58 98
03/12/24 07:30 03/12/24 08:28 03/12/24 07:30 03/12/24 08:28 03/12/24 07:30
Intake and Output
03/11/24 03/12/24 03/13/24
06:59 06:59 06:59
Intake Total 480 / 480 1440 / 1440
Balance 480 / 480 1440 / 1440
SaO2 98
Nasal Cannula flow liters per 2
minute
Physical Exam
General: Comfortable and Other (NAD)
HEENT: Normocephalic, Anicteric and Moist Mucous Membranes
Cardiovascular: S1-S2 and Regular Rhythm
Respiratory: Crackles and Non-Labored Respirations
GI: Soft, Non Distended and Non Tender
Neurology: Awake, Alert, Oriented and No Motor Deficits
Skin: Warm, Dry and Good Color
Labs/Micro/Reports
Lab Data
03/12/24 05:45
03/12/24 05:45
Microbiology
03/10/24 14:09 Nasal Swab Influenza Types A & B (JUSTIN) - Final
Influenza A Positive, NAAT
--- NOTE | 2024-03-12 10:54 | CM ---
Patient seen at bedside with daughter
PT rec HH
Options reviewed. VN preferred - notified liasion
Daughter states will work from [facility]'s home.
Daughter states she also has a friend who is a private aide if needed.
PLAN: [facility], [facility]
--- NOTE | 2024-03-12 11:14 | W.PN.HOSP.TC ---
Today's Communication/Plan
-
see bold
Assessment / Plan
Assessment / Plan
Gen: NAD, AAOx3, appears chronically ill.
Eyes: EOMI, PERRLA, no scleral icterus.
Neck: supple.
CV: RRR, +S1/S2, no m/r/g.
Resp: B/L velcro rales, greatest in the bases
Abd: +BS, soft, NT, ND
Skin: No rashes.
Neuro: CN 2-12 intact, non-focal.
Psych: Normal mood and affect.
CXR: Extremely low lung volumes. Findings likely representing predominantly chronic interstitial fibrosis. Cannot exclude mild superimposed acute interstitial process such as interstitial edema or interstitial pneumonitis.
Acute on chronic hypoxemic respiratory failure due to acute exacerbation of ILD due to acute influenza A infection:
-baseline O2 2L NC
-cont Tamiflu
-cont Decadron/Symbicort
-pulm following
-procal NEG, acute bacterial PNA has been ruled out.
-doubt need for Doxy/Ceftin, will d/w pulm
-cont home Cellcept
Other problems:
Essential HTN: cont amlodipine
GERD: cont PPI
HLD: cont statin
DNR/Heparin
Anticipated Discharge: 24 - 48 hours
Subjective/Interval History
-
Date of Service: March 12, 2024
Objective Data
-
Labs:
Laboratory Results
03/12/24
05:45
WBC 14.3 H
Hgb 12.7
Hct 38.0
Plt Count 266
Sodium 137
Potassium 4.1
Chloride 102
Carbon Dioxide 23
BUN 29 H
Creatinine 0.6
Glucose 124 H
Calcium 9.0
Vital Signs:
Vital Signs
Temp Pulse Resp BP Pulse Ox
98.8 F 68 16 133/58 98
03/12/24 07:30 03/12/24 08:28 03/12/24 07:30 03/12/24 08:28 03/12/24 10:25
I&O
03/11/24 03/12/24 03/13/24
06:59 06:59 06:59
Intake Total 480 / 480 1440 / 1440
Balance 480 / 480 1440 / 1440
--- NOTE | 2024-03-12 11:21 | VNURNOTE ---
Home Health Liaison spoke with patient and patient's daughter Isha to discuss [facility] nurse/therapy, visits, schedule and homebound status. Both are agreeable and understand that visits at home will be 2-3 x per week to assess and teach medical
management.
Patient and daughter are aware that [facility] will contact them for start of care in 1-2 days after discharge from .
[facility] referral completed in [facility].
[2024-03-12 11:50] VITALS: BP 138/65
[2024-03-12] MEDS: TYLENOL 650 MG PO ×3 (12:25→21:27)
[2024-03-12 15:27] VITALS: BP 124/57
[2024-03-12 16:51] VITALS: BP 158/76; PULSE 85; O2SAT 96
[2024-03-12] MEDS: ROBITUSSIN DM 10 ML PO (18:20)
[2024-03-12] MEDS: TAMIFLU 75 MG PO (20:12)
[2024-03-12] MEDS: LIPITOR 10 MG PO (21:26)
[2024-03-12 23:30] VITALS: BP 152/74
[2024-03-13] MEDS: ROBITUSSIN DM 10 ML PO ×3 (03:25→12:37)
[2024-03-13 07:10] VITALS: BP 151/70
[2024-03-13] MEDS: SYMBICORT 160/4.5 MCG INHALER 2 PUFF INH (07:32)
[2024-03-13] MEDS: SINGULAIR 10 MG PO (08:09)
[2024-03-13] MEDS: VESICARE 5 MG PO (08:09)
[2024-03-13] MEDS: DELTASONE 50 MG PO (08:09)
[2024-03-13] MEDS: CLARITIN 10 MG PO (08:09)
[2024-03-13] MEDS: THERAGRAN 1 TABLET PO (08:10)
[2024-03-13] MEDS: OSCAL 500 + D 500 MG PO (08:10)
[2024-03-13] MEDS: TYLENOL 650 MG PO ×2 (08:10→12:36)
[2024-03-13] MEDS: CELLCEPT 250 MG PO (08:10)
[2024-03-13] MEDS: TAMIFLU 75 MG PO (08:10)
[2024-03-13] MEDS: HIPREX 1 GRAM PO (08:10)
[2024-03-13] MEDS: HEPARIN 5000 UNITS SC (08:11)
[2024-03-13] MEDS: ASPIR LOW (ENTERIC COATED) 81 MG PO (08:11)
[2024-03-13] MEDS: PROTONIX 40 MG PO (08:11)
[2024-03-13] MEDS: NORVASC 5 MG PO (08:12)
--- NOTE | 2024-03-13 08:18 | W.PN.HOSP.TC ---
Addendum entered and electronically signed by Nas Flores MD 03/13/24 14:20:
Immunosuppressed
Sepsis due to acute influenza A infection, POA
Original Note:
Today's Communication/Plan
-
d/c
Assessment / Plan
Assessment / Plan
Gen: remains NAD, AAOx3, appears chronically ill.
Eyes: EOMI, PERRLA, no scleral icterus.
Neck: supple.
CV: remains RRR, +S1/S2, no m/r/g.
Resp: remains B/L velcro rales, greatest in the bases
Abd: +BS, soft, NT, ND
Skin: No rashes.
Neuro: CN 2-12 intact, non-focal.
Psych: Normal mood and affect.
CXR: Extremely low lung volumes. Findings likely representing predominantly chronic interstitial fibrosis. Cannot exclude mild superimposed acute interstitial process such as interstitial edema or interstitial pneumonitis.
Acute on chronic hypoxemic respiratory failure due to acute exacerbation of ILD and COPD due to acute influenza A infection:
-baseline O2 2L NC
-cont Tamiflu to complete 5 days
-was on Decadron, now transitioned to Prednisone
-cont Symbicort
-procal NEG, acute bacterial PNA has been ruled out, abx stopped
-cont home Cellcept
-pulm following, case discussed with Dr. Stevens and the pt is medically cleared for d/c on Prednisone taper.
Other problems:
Essential HTN: cont amlodipine
GERD: cont PPI
HLD: cont statin
Pt's daughter updated at bedside.
DNR/Heparin
Medically cleared for d/c, case management aware. Pt may appeal the discharge.
Total time spent on d/c = 36 min. This included today's physical exam, progress note, review of laboratory and diagnostic data, preparation of discharge documents and prescriptions, and discussions about the pt's hospital course and discharge plan
with the patient and other medical center manager involved in the patient's care.
Anticipated Discharge: Today
Subjective/Interval History
-
Date of Service: March 13, 2024
No new complaints.
Objective Data
-
Vital Signs:
Vital Signs
Temp Pulse Resp BP Pulse Ox
97.3 F 65 16 151/70 97
03/13/24 07:10 03/13/24 07:35 03/13/24 07:35 03/13/24 07:10 03/13/24 07:35
I&O
03/12/24 03/13/24 03/14/24
06:59 06:59 06:59
Intake Total 1440 / 1440 920 / 920
Balance 1440 / 1440 920 / 920
--- NOTE | 2024-03-13 09:19 | W.PN.PUL3 ---
Today's Communication / Plan
-
Doing well, home O2 eval today
Prednisone taper, tamiflu course
Agree with d/c planning per team
OP FU as designated, all questions answered
Assessment
-
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 She had worsening weakness,
lowered herself down onto her bottom, by her bed. Found by daughter, denies fall or injury. CXR showing chronic changes, no acute process.
In ER, she was noted to be Flu A positive. T max at 102.6F. She is admitted for treatment/tamiflu.
Acute on chronic respiratory failure on O2
Acute influenza A infection
AECOPD
Acute on chronic SOB
Generalized weakness
Fever
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
History of IPF following with Dr Estrada in [place], with RLD severe (TLC 43%)
COPD-moderate obstruction
HTN
HLD
History of kidney stones
Personal history of colonic polyps
Essential hypertension
Chronic UTI
Bronchiectasis, uncomplicated
Chronic cough
Gastroesophageal reflux disease
Sinusitis/Sinus surgery x2 (2011)
Left wrist ligament rebuilt
Forehead basal cell ca-mohs (2012)
Squamous cell CA nose-mohs
Allergic rhinitis
D/C
Cataracts both eyes
Skin cancer on R leg/chin 2019
Cysto 08/2022
Plan
Baseline use of O2 at home PRN, she is placed on 2L supplemental
May need to use this continuously until improved, reviewed with her
Home O2 eval
There is known prior history of lung disease including COPD/IPF, chronic cough
She follows with Pulmonary in [place]
Suspect patient has AECOPD w/ flu illness
She is on IV steroids, will decrease starting dose--transition to PO course in AM
She has taken prednisone in past for exacerbations
ABG results are normal
Flu A + now on tamiflu
Fevers noted, continue to trend
CXR/CT obtained indicating R perihilar infiltrate
Follow clinically
Other imaging reviewed
Can follow repeat imaging as OP in 4-6 weeks
PCT neg--can stop abx
Had prior sputum cultures that were positive, being treated with oral course of abx but no records to confirm
Can follow up OP pulm for this
ECHO results in past reviewed, stable function
Will need outpatient pulmonary evaluation in our office including PFTs and 6MWT
Reviewed with patient
Can follow up with her doctor in [place], has appt next month
D/c planning per team
Diagnostic Data
CXR 03/10/24- Extremely low lung volumes. Findings likely representing predominantly chronic interstitial fibrosis. Cannot exclude mild superimposed acute interstitial process such as interstitial edema or interstitial pneumonitis.
CT CHEST 02/20/23- Moderate interstitial thickening and chronic interstitial lung disease with fibrosis. 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 Classic honeycombing is not present, and this is a distinct imaging feature
of UIP therefore this suggests 'probable UIP pattern'. Reticular abnormalities with areas of vague groundglass mosaic pattern, bronchiectasis and a subpleural basilar predominance. This may represent IPF (Idiopathic pulmonary fibrosis). No focal
airspace process or bronchopneumonia. No pleural effusion.
ECHO 01/25/23- Normal left ventricular size, wall thickness and systolic function. LV ejection fraction is 65-70%. No significant valvular disease. No prior study available for comparison.
PFT 12/24/23- FEV1 1.06L 56%, ratio 0.79. TLC 43%, DLCO 48% (moderate obstruction, severe restriction, moderate diffusion impairment)
Reports and relevant images were personally reviewed.
-----
Total time spent on this encounter _51__ minutes which includes review of history, physical exam, medications, llaboratory data, personal review of imaging, extensive review of outpatient records, and discussions with care team.
Subjective Data
-
Date of Service:
Date of Service: March 13, 2024
Chief Complaint: Pulmonary Follow Up
Subjective:
Doing well, ready to go home
Family at bedside
Objective Data
Data Reviewed
Vital Signs / I&O / Oxygen:
Vital Signs
Temp Pulse Resp BP Pulse Ox
97.3 F 69 16 151/70 97
03/13/24 07:10 03/13/24 08:12 03/13/24 07:35 03/13/24 08:12 03/13/24 07:35
Intake and Output
03/12/24 03/13/24 03/14/24
06:59 06:59 06:59
Intake Total 1440 / 1440 920 / 920
Balance 1440 / 1440 920 / 920
SaO2 97
Nasal Cannula flow liters per 2
minute
Physical Exam
General: Comfortable and Other (NAD)
HEENT: Normocephalic, Anicteric and Moist Mucous Membranes
Cardiovascular: S1-S2 and Regular Rhythm
Respiratory: Crackles and Non-Labored Respirations
GI: Soft, Non Distended and Non Tender
Neurology: Awake, Alert, Oriented and No Motor Deficits
Skin: Warm, Dry and Good Color
Labs/Micro/Reports
Lab Data
03/12/24 05:45
03/12/24 05:45
Microbiology
03/10/24 14:09 Nasal Swab Influenza Types A & B (JUSTIN) - Final
Influenza A Positive, NAAT
--- NOTE | 2024-03-13 11:17 | PN.CDI ---
CDI
- -
CDI:
Physician Documentation Request
Admit Date: 03/10/24 18:18
Dear Doctor Sandra,
Patient admitted for respiratory failure.
03/13 Hospitalist PN: 'Acute on chronic hypoxemic respiratory failure due to acute exacerbation of ILD and COPD due to acute influenza A infection...cont home Cellcept'
Based on the above, could you clarify in the progress notes, the appropriate diagnosis, if significant, that supports the above abnormalities and additional evaluation, monitoring and/or treatment rendered:
Immunosuppressed
Normal immunity
Other
Use of terms such as suspected, likely, concern for, or probable (associated with a specific diagnosis that is being evaluated, monitored, or treated as if it exists) are acceptable and can be coded in the inpatient setting, when documented at the
time of discharge.
Thank you,
Fang Bishop RN, BSN
CDI Specialist
Available via [place] text
Please use your independent medical judgment in providing your response.
--- NOTE | 2024-03-13 11:17 | CM ---
Addendum entered by Kimi Yoo 03/13/24 11:57:
Script for rolling walker given to PT on unit
Original Note:
Plan: Discharge to home today with Home Health services from [facility]
CM spoke with patient's daughter who is at the bedside and will provide transport home
Attending notified to provide script for PT to provide rolling walker at discharge
[2024-03-13 14:46] VITALS: BP 144/71
--- NOTE | 2024-03-13 16:02 | W.DCSUMMARY ---
Discharge Summary
Discharge Data
Date of Admission: 03/10/24
Date of Discharge: 03/13/24
-
Pending Results: No
Hospital Course
Primary diagnoses:
Sepsis and acute on chronic hypoxemic respiratory failure due to acute exacerbation of interstitial lung disease and chronic obstructive pulmonary disease due to acute influenza A infection
Secondary diagnoses:
Immunosuppressed
Essential hypertension
Gastroesophageal reflux disease
Hyperlipidemia
Consultants:
Pulmonary
Imaging:
CXR: Extremely low lung volumes. Findings likely representing predominantly chronic interstitial fibrosis. Cannot exclude mild superimposed acute interstitial process such as interstitial edema or interstitial pneumonitis.
Hospital course: 78-year-old female who presented with a chief complaint of respiratory distress as outlined in the H&P done on admission. The patient had sepsis and acute on chronic hypoxemic respiratory failure due to acute exacerbation of ILD
and COPD due to acute influenza A infection. She was placed on Tamiflu and Decadron. She was then transition to oral prednisone. She was initially on antibiotics but her procalcitonin was negative and acute bacterial pneumonia was ruled out.
Antibiotics were stopped. The patient was discharged on Tamiflu to complete a 5-day course and a prednisone taper.
Discharge Plan
-
Patient Disposition: Home with Home Care
Discharge Diagnosis/Procedures: Acute on chronic hypoxemic respiratory failure due to acute exacerbation of interstitial lung disease and chronic obstructive pulmonary disease due to acute influenza A infection
Condition: Fair
Diet: No restrictions
Activity: As tolerated
Driving Restrictions: As prior to admission
Referrals:
Marquez Nettles MD [Family Provider] - in less than 1 week
Prescriptions:
New
oseltamivir 75 mg Capsule
75 mg PO BID Qty: 10 0RF
Rx Instructions:
last dose 03/15/24
prednisone 10 mg tablet
10 mg PO DIRECTED Qty: 45 0RF
Rx Instructions:
Taper: 50mg daily x 3 days, 40mg daily x 3 days, 30mg daily x 3 days, 20mg daily x 3 days, 10mg daily x 3 days
Continued
multivitamin Tablet
1 tab PO DAILY
mycophenolate mofetil [CellCept] 250 mg Capsule
250 mg PO BID
fexofenadine 180 mg Tablet
180 mg PO DAILY
amlodipine 5 mg Tablet
5 mg PO DAILY
omeprazole 40 mg Capsule,Delayed Release(Dr/Ec)
40 mg PO DAILY
methenamine hippurate 1 gram Tablet
1 g PO DAILY
pantoprazole 40 mg Tablet,Delayed Release (Dr/Ec)
40 mg PO DAILY
simvastatin 20 mg Tablet
20 mg PO HS
diphenhydramine HCl [Benadryl Allergy] 25 mg Tablet
25 mg PO HS PRN (Reason: sleep)
montelukast 10 mg Tablet
10 mg PO DAILY
calcium carbonate-vitamin D2 600 mg calcium- 200 unit Tablet
1 tab PO DAILY
fluticasone propionate 50 mcg/actuation Bath,Suspension
2 spray INTRANASAL DAILY
amoxicillin-pot clavulanate 875-125 mg Tablet
1 tab PO BID
solifenacin 5 mg Tablet
5 mg PO DAILY
budesonide-formoterol [Breyna] 160-4.5 mcg/actuation Hfa Aerosol Inhaler
2 puff INHALATION BID
cranberry extract [Ellura] 200 mg Capsule
200 mg PO DAILY
aspirin 81 mg Capsule
81 mg PO DAILY
Discontinued
atovaquone-proguanil [Malarone] 250-100 mg Tablet
1 tab PO DAILY
cefaclor 500 mg Tablet Extended Release 12 Hr
500 mg PO Q12H
Discharge Orders:
Discharge Patient (As Directed); Ordered 03/13/24
Ordered By: Nas Flores
Discharge Date and Time
Discharge Date/Time: 03/13/24 15:03
Print Language: PORTUGUESE
== END 2024-03-13 15:03 | disposition home health service (06) | DRG 871 ==
LOC: 2 NORTH 18:18
PROVIDERS: Emergency Medicine; Internal Medicine; Nurse Practitioner Gerontology; ADMITTING PHYSICIAN Internal Medicine; ATTENDING PHYSICIAN Internal Medicine; EMERGENCY PHYSICIAN Emergency Medicine; FAMILY PHYSICIAN Internal Medicine Geriatric Medicine; OTHER PHYSICIAN Internal Medicine
DX: A41.89 Other specified sepsis (principal); J96.21 Acute and chronic respiratory failure with hypoxia; J44.1 Chronic obstructive pulmonary disease with (acute) exacerbation; D84.9 Immunodeficiency, unspecified; D84.821 Immunodeficiency due to drugs; Z66 Do not resuscitate; J10.1 Influenza due to other identified influenza virus with other respiratory manifestations; E78.2 Mixed hyperlipidemia; E86.0 Dehydration; I10 Essential (primary) hypertension; J84.10 Pulmonary fibrosis, unspecified; K21.9 Gastro-esophageal reflux disease without esophagitis; Z99.81 Dependence on supplemental oxygen; Z91.040 Latex allergy status; Z88.2 Allergy status to sulfonamides; Z88.1 Allergy status to other antibiotic agents; Z79.82 Long term (current) use of aspirin; Z79.899 Other long term (current) drug therapy; Z79.624 Long term (current) use of inhibitors of nucleotide synthesis; Z20.822 Contact with and (suspected) exposure to COVID-19
CPT/HCPCS: 70450; 71046; 80048; 80053; 82550; 82805; 82962; 83735; 84145; 84484; 85025; 85027; 87502; 87811; 93005; 94640; 96361; 96374; 97162; 97167; 97530; 97535; 99285

== ENCOUNTER → 2024-06-11 12:07 | Outpatient (REF) | payer MEDICARE, OTHER, SELFPAY ==
[2024-06-11 12:31] LABS: Urine Albumin 3+ (Neg - Trace); Urine Bilirubin 1+ (Negative); Urine Character Cloudy (Clear); Urine Color Yellow; Urine Glucose Negative (Negative); Urine Ketone Negative (Negative); Urine Leukocyte 3+ (Negative); Urine Nitrite Positive (Negative); Urine Occult Blood 2+ (Negative); Urine Urobilinogen 1+ (Neg - 1+)
[2024-06-11 14:13] LABS: Urine Squamous Cell 26-30 /LPF (Few)
[2024-06-11 14:14] LABS: Urine Amorphous Seen
[2024-06-11 14:15] LABS: Urine White Cell >100 /HPF (0-5)
[2024-06-11 14:16] LABS: Urine Hyaline Cast 0-2 /LPF (0-2)
[2024-06-11 14:18] LABS: Urine Bacteria Moderate (Negative); Urine Red Blood Cell 0-2 /HPF (0-2)
== END ==
LOC: REG 12:07
PROVIDERS: ATTENDING PHYSICIAN Nurse Practitioner Family; FAMILY PHYSICIAN Internal Medicine Geriatric Medicine
DX: N30.00 Acute cystitis without hematuria (principal)
CPT/HCPCS: 81003; 81015; 87077; 87086; 87186

== ENCOUNTER 2024-06-16 14:45 | Outpatient (RCR) | payer MEDICARE, OTHER, SELFPAY | END 2024-06-17 11:08 | disposition home or self-care (01) | LOC: PURB 14:45 | PROVIDERS: ATTENDING PHYSICIAN Internal Medicine Pulmonary Disease; FAMILY PHYSICIAN Internal Medicine Geriatric Medicine | DX: J84.9 Interstitial pulmonary disease, unspecified (principal); J96.11 Chronic respiratory failure with hypoxia; J44.9 Chronic obstructive pulmonary disease, unspecified | CPT/HCPCS: G0239 ==

== ENCOUNTER → 2024-06-24 10:17 | Outpatient (REF) | payer MEDICARE, OTHER, SELFPAY | LOC: CLAB 10:17 | PROVIDERS: ATTENDING PHYSICIAN Nurse Practitioner Family | DX: R30.0 Dysuria (principal) | CPT/HCPCS: 87086; 87088 ==

== ENCOUNTER 2024-07-16 14:45 | Outpatient (RCR) | payer MEDICARE, OTHER, SELFPAY | END 2024-07-17 10:51 | disposition home or self-care (01) | LOC: PURB 14:45 | PROVIDERS: ATTENDING PHYSICIAN Internal Medicine Pulmonary Disease; FAMILY PHYSICIAN Internal Medicine Geriatric Medicine | DX: J84.9 Interstitial pulmonary disease, unspecified (principal); J96.11 Chronic respiratory failure with hypoxia; J44.9 Chronic obstructive pulmonary disease, unspecified | CPT/HCPCS: G0239 ==

== ENCOUNTER → 2024-07-20 10:37 | Outpatient (REF) | payer MEDICARE, OTHER, SELFPAY ==
[2024-07-20 14:04] LABS: Urine Albumin 2+ (Neg - Trace); Urine Bilirubin Negative (Negative); Urine Character Cloudy (Clear); Urine Color Yellow; Urine Glucose Negative (Negative); Urine Ketone Negative (Negative); Urine Leukocyte 3+ (Negative); Urine Nitrite Negative (Negative); Urine Occult Blood 2+ (Negative); Urine Specific Gravity 1.015 (<1.030); Urine Urobilinogen Negative (Neg - 1+)
[2024-07-20 14:25] LABS: Urine Hyaline Cast 0-2 /LPF (0-2)
[2024-07-20 14:26] LABS: Urine Bacteria Many (Negative); Urine White Cell >100 /HPF (0-5)
== END ==
LOC: CLAB 10:37
PROVIDERS: ATTENDING PHYSICIAN Nurse Practitioner Family
DX: R39.9 Unspecified symptoms and signs involving the genitourinary system (principal)
CPT/HCPCS: 81003; 81015; 87086; 87088; 87186

== ENCOUNTER 2024-08-13 14:45 | Outpatient (RCR) | payer MEDICARE, OTHER, SELFPAY | END 2024-08-17 09:43 | disposition home or self-care (01) | LOC: PURB 14:45 | PROVIDERS: ATTENDING PHYSICIAN Internal Medicine Pulmonary Disease; FAMILY PHYSICIAN Internal Medicine Geriatric Medicine | DX: J84.9 Interstitial pulmonary disease, unspecified (principal); J96.11 Chronic respiratory failure with hypoxia; J44.9 Chronic obstructive pulmonary disease, unspecified | CPT/HCPCS: G0239 ==

== ENCOUNTER 2024-08-25 14:45 | Outpatient (RCR) | payer MEDICARE, OTHER, SELFPAY | END 2024-08-25 23:59 | disposition home or self-care (01) | LOC: PURB 14:45 | PROVIDERS: ATTENDING PHYSICIAN Internal Medicine Pulmonary Disease; FAMILY PHYSICIAN Internal Medicine Geriatric Medicine | DX: J84.9 Interstitial pulmonary disease, unspecified (principal); J96.11 Chronic respiratory failure with hypoxia; J44.9 Chronic obstructive pulmonary disease, unspecified | CPT/HCPCS: G0239 ==

== ENCOUNTER 2024-10-15 14:45 | Outpatient (RCR) | payer MEDICARE, OTHER, SELFPAY | END 2024-10-16 11:05 | disposition home or self-care (01) | LOC: PURB 14:45 | PROVIDERS: ATTENDING PHYSICIAN Internal Medicine Pulmonary Disease; FAMILY PHYSICIAN Internal Medicine Geriatric Medicine | DX: J84.9 Interstitial pulmonary disease, unspecified (principal); J96.11 Chronic respiratory failure with hypoxia; J44.9 Chronic obstructive pulmonary disease, unspecified | CPT/HCPCS: G0239 ==